=== PATIENT | female | born 1990 | race African-American/Black ===

== ENCOUNTER 2019-08-14 18:16 | Emergency (ER) | payer BC | END 2019-08-14 19:15 | disposition home or self-care (01) | LOC: ERS 18:16 | DX: T78.3XXA Angioneurotic edema, initial encounter (principal) | CPT/HCPCS: 99283 ==

== ENCOUNTER 2023-05-14 06:50 | Emergency (ER) | payer BC, SELFPAY ==
[2023-05-14 08:43] LABS: SARS-CoV-2 NAA Rapid Test Not Detected (NotDetected)
== END 2023-05-14 09:03 | disposition home or self-care (01) ==
LOC: ERS 06:50
DX: J11.1 Influenza due to unidentified influenza virus with other respiratory manifestations (principal)
CPT/HCPCS: 99283

== ENCOUNTER 2024-03-26 16:53 | Inpatient (IN) | payer SELFPAY ==
[~2024-03-26 16:53] MED LIST: Iopamidol-370 76% 500 ML MDV (1 ML CHARGE) ONE
[2024-03-26] MEDS ORDERED: Lidocaine 1% PF 5 ML VIAL ONE (17:15)
[2024-03-26] MEDS ORDERED: Boostrix 0.5 ML (Tdap) VIAL (>/=7 yrs of age) ONE (17:18)
[2024-03-26] MEDS ORDERED: Ketorolac Tromethamine 30 MG (1 mL) VIAL ONE (18:04)
[2024-03-26] MEDS ORDERED: Acetaminophen 500 MG TAB ONE (18:07)
[2024-03-26 18:09] LABS: #Basophils 0.04 10x3/uL (0.0-0.2); %Basophils 0.3 % (0.0-1.0); %Eosinophils 0.4 % (0.0-10.0); %Lymphocytes 7.1 % (21.0-51.0); %Monocytes 13.9 % (0.0-10.0); %Neutrophils 77.6 % (42.0-75.0); Hematocrit 39.6 % (36.0-47.0); Mean Corpuscular HGB CONC 32.8 g/dL (32.0-36.0); Mean Corpuscular Hemoglobin 29.9 pg (27.0-31.0); Mean Platelet Volume 9.9 fL (7.4-10.4); Platelet Count 300 10x3/uL (130-400); RBC Distribution Width 12.2 % (11.5-14.5); Red Blood Cell (RBC) Count 4.35 mill/uL (4.20-5.40)
[2024-03-26 18:15] LABS: BHCG - Serum Negative (NEGATIVE); Pregs Control Background? CLEAR/WHITE (CLR/WHITE); Pregs Control Bar Appear? YES (CONTROL BAR)
[2024-03-26 18:24] LABS: ALT (SGPT) 29 U/L (8-55); AST (SGOT) 26 U/L (5-34); Alkaline Phosphatase 96 U/L (40-110); Anion Gap 15 mmol/L (10-20); BUN (Urea Nitrogen) 7 mg/dL (7.0-18.7); Bilirubin, Total 0.4 mg/dL (0.2-1.2); Calc. Creatinine Clearance 0 mL/min (70-130); Calcium 9.1 mg/dL (7.8-10.44); Carbon Dioxide 25 mmol/L (22-29); Chloride 98 mmol/L (98-107); Estimated GFR 84; Globulin 4.8 g/dL (2.4-3.5); Glucose 109 mg/dL (70-105); Potassium 3.7 mmol/L (3.5-5.1); Protein, Total 7.8 g/dL (6.0-8.3); Sodium 134 mmol/L (136-145)
[2024-03-26] MEDS ORDERED: Ondansetron PF 4 MG/2 ML Vial IVP PRN (20:13)
[2024-03-26] MEDS ORDERED: Ipratropium/Albuterol 3 ML NEB NEB PRN (20:13)
[2024-03-26] MEDS ORDERED: Sodium Chloride 0.9% 100 ML ONE (20:26)
[2024-03-26] MEDS ORDERED: Piperacillin/Tazobactam 4.5 GM VIAL ONE (20:26)
[2024-03-26] MEDS ORDERED: Ondansetron PF 4 MG/2 ML Vial ONE (20:31)
[2024-03-26 21:37] VITALS: BMI 38.4
[2024-03-26] MEDS: Morphine 2 MG/ML VIAL SLOW IVP PRN (21:38)
[2024-03-26] MEDS: Famotidine/PF 20 mg/2ml Vial SLOW IVP SCH (21:38)
[2024-03-26] MEDS: traMADol HCl 50 MG TAB PO PRN (21:39)
[2024-03-26] MEDS: Sodium Chloride 0.9% 1,000 ML IV SCH (21:40)
[2024-03-27] MEDS: traMADol HCl 50 MG TAB PO SCH (00:11)
[2024-03-27] MEDS: Acetaminophen 325 MG TAB PO SCH (00:12)
[2024-03-27] MEDS: Piperacillin/Tazobactam 3.375 GM in Sodium Chloride 0.9% 100 ML IVPB SCH (00:13)
[2024-03-27 07:53] LABS: #Basophils 0.06 10x3/uL (0.0-0.2); %Basophils 0.4 % (0.0-1.0); %Eosinophils 0.6 % (0.0-10.0); %Lymphocytes 5.5 % (21.0-51.0); %Neutrophils 80.9 % (42.0-75.0); Hematocrit 36.1 % (36.0-47.0); Hemoglobin 11.7 g/dL (12.0-16.0); Mean Corpuscular HGB CONC 32.4 g/dL (32.0-36.0); Mean Corpuscular Volume 92.6 fL (78.0-98.0); Mean Platelet Volume 10.1 fL (7.4-10.4); Platelet Count 294 10x3/uL (130-400); RBC Distribution Width 12.7 % (11.5-14.5)
[2024-03-27 08:43] LABS: Calcium 8.5 mg/dL (7.8-10.44); Chloride 102 mmol/L (98-107); Potassium 3.1 mmol/L (3.5-5.1); Sodium 135 mmol/L (136-145)
[2024-03-27 08:44] LABS: Glucose 101 mg/dL (70-105)
[2024-03-27 08:45] LABS: Anion Gap 13 mmol/L (10-20); Carbon Dioxide 23 mmol/L (22-29)
[2024-03-27 08:48] LABS: BUN (Urea Nitrogen) 6 mg/dL (7.0-18.7); Calc. Creatinine Clearance 138 mL/min (70-130); Estimated GFR 93
[2024-03-27] MEDS ORDERED: PROPOFOL 20 ML ONE (13:26)
[2024-03-27] MEDS ORDERED: Dexamethasone 20 MG/5 ML VIAL ONE (13:26)
[2024-03-27] MEDS ORDERED: Lidocaine 1% PF 5 ML VIAL ONE (13:26)
[2024-03-27] MEDS ORDERED: Ondansetron PF 4 MG/2 ML Vial ONE (13:26)
[2024-03-27] MEDS ORDERED: fentaNYL PF 100 MCG/2 ML SYRINGE ONE ×3 (13:27→13:59)
[2024-03-27] MEDS ORDERED: PHENYLEPHRINE-NS 100 MCG/ML 10 ML SYRINGE ONE (13:59)
[2024-03-27] MEDS ORDERED: HYDROmorphone 2 MG/ML VIAL ONE (14:02)
[2024-03-28 05:43] LABS: #Basophils 0.04 10x3/uL (0.0-0.2); #Eosinophils Less than 0.03 10x3/uL (0.0-0.7); %Basophils 0.2 % (0.0-1.0); %Eosinophils 0.1 % (0.0-10.0); %Monocytes 7.4 % (0.0-10.0); %Neutrophils 84.5 % (42.0-75.0); Hematocrit 34.4 % (36.0-47.0); Hemoglobin 10.9 g/dL (12.0-16.0); Mean Corpuscular HGB CONC 31.7 g/dL (32.0-36.0); Mean Corpuscular Hemoglobin 29.7 pg (27.0-31.0); Mean Corpuscular Volume 93.7 fL (78.0-98.0); Mean Platelet Volume 9.6 fL (7.4-10.4); Platelet Count 290 10x3/uL (130-400); RBC Distribution Width 12.8 % (11.5-14.5); Red Blood Cell (RBC) Count 3.67 mill/uL (4.20-5.40)
[2024-03-28] MEDS ORDERED: Ibuprofen 600 MG TAB PO PRN (06:32)
[2024-03-28] MEDS ORDERED: traMADol HCl 50 MG TAB PO PRN (06:33)
[2024-03-28] MEDS: Famotidine 20 MG TAB PO SCH (09:58)
[2024-03-28] MEDS: Amoxicillin/Potassium Clav 500 MG TAB PO SCH (09:58)
[2024-03-28] MEDS: Acetaminophen 500 MG TAB PO SCH (09:59)
[2024-03-28 12:28] VITALS: TEMP 97.4
[2024-03-28 12:29] VITALS: BP 112/77
== END 2024-03-28 17:15 | disposition home or self-care (01) | DRG 346 ==
LOC: ERS 16:53 → SURG B 20:16
PROVIDERS: ADMIT Surgery; ATTEND Surgery
PROC: 0D9P0ZZ Drainage of Rectum, Open Approach (ICD-10-PCS; principal; 2024-03-27)
DX: K61.1 Rectal abscess (principal); Z88.8 Allergy status to other drugs, medicaments and biological substances; Z98.890 Other specified postprocedural states
CPT/HCPCS: 36415; 72193; 80048; 80053; 84703; 85025; 87070; 87077; 87205; 90715; J1100; J1885; J2272; J2405; J2543; J2704; J3490; J7030; Q9967